=== PATIENT | male | born 1985 | race Caucasian/White ===

== ENCOUNTER 2018-06-01 11:38 | Emergency (ER) | payer SELFPAY ==
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
[2018-06-01] MEDS ORDERED: INSU100V24 SQ (11:54)
[2018-06-01] MEDS ORDERED: INSU100I5 (11:54)
[2018-06-01] MEDS ORDERED: ONDANSETRON 4 MG/2 ML VIAL IVP ONE (12:00)
[2018-06-01] MEDS ORDERED: MORPHINE 4 MG/ML SDV IVP ONE (12:00)
[2018-06-01] MEDS ORDERED: NS(*) 0.9% 1000 ML BAG 1,000 ML IV ONE (12:00)
[2018-06-01 12:20] LABS: PLATELET COUNT, AUTOMATED 254 K/uL (150-450)
== END 2018-06-01 13:10 | disposition home or self-care (01) ==
LOC: ER 11:50
DX: T69.9XXA Effect of reduced temperature, unspecified, initial encounter (principal); M79.672 Pain in left foot; M79.671 Pain in right foot
CPT/HCPCS: 36416; 82948; 85025; 96374; 96375; 99284; J2270; J2405; J7030; 82040; 82247; 82310; 82374; 82435; 82565; 82947; 84075; 84132; 84155; 84295; 84450; 84460; 84520

== ENCOUNTER 2018-06-05 22:45 | Emergency (ER) | payer SELFPAY ==
[~2018-06-05 22:45] MED LIST: INSU100I5; INSU100V24 SQ
[2018-06-05 22:54] VITALS: BP 129/96
--- NOTE | 2018-06-05 23:06 | ER Report ---
History and Physical Time Seen By MD: 23:06 HPI/ROS CHIEF COMPLAINT: requesting a physical exam and TB testing HISTORY OF PRESENT ILLNESS: This is a 32 year old male. He is here [facility] requesting a physical exam for getting into a rehab treatment program in [place]. He denies any current health problems or complaints at this time other than his chronic type 1 diabetes and requesting a prescription for his insulin for use in the program. He does see the [facility] for regular health care. He has no known exposure to TB, but does have a history of drug abuse in the past. He has been sober from alcohol. He does smoke a pack of cigarettes daily, and requesting a prescription for nicotine patches for use during the program. No other current drug use. He is requesting testing for Hepatitis C, and we also talked about getting testing for Hepatitis B and HIV as well. REVIEW OF SYSTEMS: Constitutional: No fever or chills. Eyes: No vision changes. ENT: No sore throat. No congestion. Cardiovascular: No chest pain. No palpitations. Respiratory: No cough. No shortness of breath. Gastrointestinal: No abdominal pain. No nausea or vomiting. No change in bowel movements. Genitourinary: No dysuria. No frequency Musculoskeletal: No musculoskeletal pain. Skin: No rashes. No bruising. Neurological: No numbness. No weakness. No headache. Allergies: Coded Allergies: No Known Drug Allergies (Unverified , 06/05/18) Home Meds Active Scripts Insulin Lispro 100 Un/Ml Vial (HUMALOG 100 U/ML VIAL) 100 Unit/1 Ml Vial, 100 UNIT SQ DIRECTED, #2 VIAL 2 Refills Prov:AZUL LONDONO MD 06/05/18 Insulin Detemir (LEVEMIR) 100 Unit/Ml Injs, 30 UNIT SUBQ BID, #3 PEN 2 Refills Prov:AZUL LONDONO MD 06/05/18 Nicotine (NICOTINE PATCH) 1 Each Patch.td24, 1 EACH TD DAILY, #30 PATCH.24H 3 Refills Prov:AZUL LONDONO MD 06/05/18 Reported Medications Insulin Lispro 100 Un/Ml Vial (HUMALOG 100 U/ML VIAL) 100 Unit/1 Ml Vial, 100 UNIT SQ, VIAL 06/01/18 Insulin Detemir 100 UN/ML PEN (Levemir Flextouch) 100 Unit/1 Ml Insuln.pen 06/01/18 Past Medical/Surgical History 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 No acute distress. Non-toxic in appearance. Eyes: Pupils are equal, round. Reactive to light. No pallor, injection or icterus. Extraocular movements are intact. ENT: Mucous membranes are moist. Normal oral mucosa. Posterior oropharynx is normal. Normal tympanic membranes and canals. Neck: Supple and non tender. No lymphadenopathy. Respiratory: Lungs are clear to auscultation. Cardiovascular: Regular rate and rhythm. No murmurs, gallops or rubs. Normal capillary refill. No edema. Gastrointestinal: Abdomen is soft and non tender. Nondistended. Normal active bowel sounds. No costovertebral angle tenderness with percussion. Neurological: Alert and oriented x3. Cranial nerves II through XII show no acute deficits on my exam. No focal neurologic deficits in the extremities. Skin: Warm and dry. No rashes. Musculoskeletal: Extremities are nontender. Full range of motion. No tenderness in palpation back/spine. DIFFERENTIAL DIAGNOSIS: After history and physical exam, differential diagnosis was considered for unremarkable physical exam for patient who is trying to get into a treatment plan for substance abuse Medical Decision Making Data Points Laboratory Hematology Test 06/05/18 23:46 HIV (1&2) Antibody Negative (NEGATIVE) Chemistry Test 06/05/18 23:46 HIV (1&2) Antibody Negative (NEGATIVE) ED Course/Re-evaluation ED Course Physical exam completed. Prescription for nicotine patches provided. Prescription for insulin provided. TB skin test placed and will be read in [place] at the treatment program he will be attending. Recommended continue follow-up with primary care at the [facility] for continued evaluation of his diabetes. Decision to Disposition Date: Jun 05, 2018 Decision to Disposition Time: 23:41 Depart Departure Latest Vital Signs Vital Signs Date Time Temp Pulse Resp B/P (MAP) Pulse Ox O2 Delivery O2 Flow Rate FiO2 06/05/18 22:54 97.5 111 18 129/96 94 Room Air Impression: Primary Impression: Physical exam Additional Impressions: Substance abuse Nicotine dependence Type 1 diabetes Condition: Condition Unchanged Disposition: HOME OR SELF-CARE New Scripts Insulin Lispro 100 Un/Ml Vial (HUMALOG 100 U/ML VIAL) 100 Unit/1 Ml Vial 100 UNIT SQ DIRECTED, #2 VIAL 2 Refills Prov: AZUL LONDONO MD 06/05/18 Insulin Detemir (LEVEMIR) 100 Unit/Ml Injs 30 UNIT SUBQ BID, #3 PEN 2 Refills Prov: AZUL LONDONO MD 06/05/18 Nicotine (NICOTINE PATCH) 1 Each Patch.td24 1 EACH TD DAILY, #30 PATCH.24H 3 Refills Prov: AZUL LONDONO MD 06/05/18 Patient Instructions: How to Stop Smoking (ED) Additional Instructions: Make sure and call if you do not hear back on the lab tests done today. Have the TB test read in [place] at the treatment program you will be starting. Nicotine patch prescription provided. Insulin prescription provided. Continue to follow-up with [facility] for treatment and monitoring of your diabetes. Problem Qualifiers Additional Impressions: Nicotine dependence Nicotine product type: cigarettes Substance use status: uncomplicated Qualified Codes: F17.210 - Nicotine dependence, cigarettes, uncomplicated Type 1 diabetes Diabetes mellitus complication status: with ophthalmic complications Diabetes mellitus complication detail: with diabetic retinopathy Diabetic retinopathy severity: with unspecified retinopathy severity Diabetes [facility] macular edema: macular edema presence unspecified Laterality: bilateral Qualified Codes: E10.319 - Type 1 diabetes mellitus with unspecified diabetic retinopathy without macular edema AZUL LONDONO MD Jun 05, 2018 23:06
[2018-06-05] MEDS ORDERED: INSU100V24 SQ (23:50)
[2018-06-05] MEDS ORDERED: NICO1PAT86 TD (23:50)
[2018-06-05] MEDS ORDERED: LEVI SUBQ (23:50)
== END 2018-06-06 00:05 | disposition home or self-care (01) ==
LOC: ER 23:05
DX: Z76.0 Encounter for issue of repeat prescription (principal); F19.21 Other psychoactive substance dependence, in remission; E10.319 Type 1 diabetes mellitus with unspecified diabetic retinopathy without macular edema; F17.210 Nicotine dependence, cigarettes, uncomplicated
CPT/HCPCS: 36415; 86580; 86703; 86704; 86706; 86803; 87340; 99282

== ENCOUNTER 2018-06-15 14:35 | Inpatient (IN) | payer SELFPAY ==
[~2018-06-15] VITALS: Ht 182.9 cm; Wt 85.3 kg
[~2018-06-15 14:35] MED LIST changes: -OMEP-125 PO; -SUCR1TAB85 PO; -[UNRECOGNIZED DRUG - OTHER] PO
--- NOTE | 2018-06-15 14:44 | ER Report ---
History and Physical Time Seen By MD: 14:42 Hx. of Stated Complaint: ABDOMINAL PAIN SINCE THIS MORNING. REPORTS WHEN HE GETS DKA HE FEELS THIS WAY HPI/ROS CHIEF COMPLAINT: Possible DKA HISTORY OF PRESENT ILLNESS: This is a 32-year-old male who presents to the emergency department via EMS for possible DKA. Patient began vomiting this morning, he is a type I diabetic. Patient also states he used methamphetamine about 2 days ago, he shot up in his left arm. Patient is very anxious. He also has severe epigastric pain that radiates into the left upper quadrant. No diarrhea. No fevers. No rashes. No headaches or meningismus. REVIEW OF SYSTEMS: Constitutional: No fever, no chills. Eyes: No discharge. ENT: No sore throat. Cardiovascular: No chest pain, no palpitations. Respiratory: No cough, no shortness of breath. Gastrointestinal: As above. Genitourinary: No hematuria. Musculoskeletal: No back pain. Skin: No rashes. Neurological: No headache. Allergies: Coded Allergies: No Known Drug Allergies (Unverified , 06/05/18) Home Meds Active Scripts Insulin Detemir (LEVEMIR) 100 Unit/Ml Injs, 30 UNIT SUBQ BID, #3 PEN 2 Refills Prov:AZUL LONDONO MD 06/05/18 Nicotine (NICOTINE PATCH) 1 Each Patch.td24, 1 EACH TD DAILY, #30 PATCH.24H 3 Refills Prov:AZUL LONDONO MD 06/05/18 Reported Medications Insulin Lispro 100 Un/Ml Vial (HUMALOG 100 U/ML VIAL) 100 Unit/1 Ml Vial, 2-10 UNIT SQ, VIAL 2 units every 50 ml/dl 2 units if Blood Sugar 200-249 4 units if Blood sugar 250-299 6 units if Blood sugar 300-349 8 units if blood sugar 350-399 10 units if blood sugar 400-450 06/01/18 Discontinued Reported Medications Insulin Detemir 100 UN/ML PEN (Levemir Flextouch) 100 Unit/1 Ml Insuln.pen 06/01/18 Discontinued Scripts Insulin Lispro 100 Un/Ml Vial (HUMALOG 100 U/ML VIAL) 100 Unit/1 Ml Vial, 100 UNIT SQ DIRECTED, #2 VIAL 2 Refills Prov:AZUL LONDONO MD 06/05/18 Past Medical/Surgical History The patient has a past medical and surgical history of 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 Reviewed Nurses Notes: Yes Hx Substance Use Disorder: Yes (meth, marijuana current) Hx Alcohol Use: No Constitutional Vital Sign - Last 24 Hours 06/15/18 06/15/18 06/15/18 06/15/18 14:36 14:48 15:00 15:05 Temp 98.0 Pulse 130 123 Resp 20 18 B/P (MAP) 144/102 143/91 (108) 144/90 (108) Pulse Ox 96 O2 Delivery Room Air 06/15/18 06/15/18 16:00 16:05 Pulse 128 Resp 17 B/P (MAP) 149/100 (116) Pulse Ox 92 Physical Exam General Appearance: The patient is alert, has no immediate need for airway protection and no signs of toxicity, very anxious. Eyes: Pupils equal and round no pallor or injection. ENT, Mouth: Mucous membranes are moist. Respiratory: There are no retractions, lungs are clear to auscultation. Cardiovascular: Regular rate and rhythm, no murmurs, clicks or rubs. Gastrointestinal: Abdomen is soft, epigastric with right and left upper quadrant discomfort with palpation, no masses, hypoactive bowel sounds. Neurological: Alert and oriented 4. Moving all extremities. Following all commands. No focal neuro deficits. Skin: Warm and dry, no rashes. Musculoskeletal: Neck is supple non tender. Extremities are nontender, nonswollen and have full range of motion. DIFFERENTIAL DIAGNOSIS: After history and physical exam differential diagnosis was considered for abdominal pain including but not limited to appendicitis, cholecystitis, pancreatitis, diabetic ketoacidosis, gastritis and urinary tract infection. Medical Decision Making Data Points Result Diagram: 06/15/18 1417 06/15/182028 Laboratory Hematology Test 06/15/18 00:00 06/15/18 14:17 06/15/18 14:38 06/15/18 15:34 Acetone, Qualitative Moderate Red Blood Count 5.38 M/uL (4.00-5.60) Mean Corpuscular Volume 93.7 fL (80.0-96.0) Mean Corpuscular Hemoglobin 31.2 pg (26.0-33.0) Mean Corpuscular Hemoglobin Concent 33.3 g/dL (32.0-36.0) Red Cell Distribution Width 14.2 % (11.5-14.5) Mean Platelet Volume 8.7 fL (7.2-11.1) Neutrophils (%) (Auto) 69.7 % (39.4-72.5) Lymphocytes (%) (Auto) 23.0 % (17.6-49.6) Monocytes (%) (Auto) 5.9 % (4.1-12.4) Eosinophils (%) (Auto) 0.6 % (0.4-6.7) Basophils (%) (Auto) 0.8 % (0.3-1.4) Nucleated RBC Relative Count (auto) 0.0 /100WBC Neutrophils # (Auto) 4.7 K/uL (2.0-7.4) Lymphocytes # (Auto) 1.6 K/uL (1.3-3.6) Monocytes # (Auto) 0.4 K/uL (0.3-1.0) Eosinophils # (Auto) 0.0 K/uL (0.0-0.5) Basophils # (Auto) 0.1 K/uL (0.0-0.1) Nucleated RBC Absolute Count (auto) 0.00 K/uL Osmolality 319 mOSM/K (275-295) Total Bilirubin 1.0 mg/dl (0.2-1.3) Aspartate Amino Transf (AST/SGOT) 31 U/L (0-35) Alanine Aminotransferase (ALT/SGPT) 38 U/L (0-56) Alkaline Phosphatase 126 U/L (0-126) Total Protein 7.2 g/dl (6.3-8.2) Albumin 4.5 g/dl (3.5-5.0) Lipase 45 U/L (23-300) Serum Alcohol < 10 mg/dl Urine Color Straw Urine Clarity Clear Urine pH 5.0 pH (4.8-9.5) Urine Specific [place] 1.024 Urine Protein Negative mg/dL (NEGATIVE) Urine Glucose (UA) 500 mg/dL (NEGATIVE) Urine Ketones 80 mg/dL (NEGATIVE) Urine Blood Negative (NEGATIVE) Urine Nitrite Negative (NEGATIVE) Urine Bilirubin Negative (NEGATIVE) Urine Urobilinogen Negative mg/dL (0.2-1.9) Urine Leukocyte Esterase Negative (NEGATIVE) Urine RBC <1 /HPF (0-2/HPF) Urine WBC <1 /HPF (0-5/HPF) Urine Squamous Epithelial Cells None /LPF (</=FEW) Urine Bacteria Negative /HPF (NONE-FEW) Urine Mucus None /HPF (NONE-FEW) Urine Opiates Screen Negative Urine Barbiturates Screen Negative Ur Tricyclic Antidepressants Screen Negative Urine Phencyclidine Screen Negative Urine Amphetamines Screen Positive Urine Benzodiazepines Screen Negative Urine Cocaine Screen Negative Urine Cannabinoids Screen Negative Blood Gas Puncture Site Right radial Blood Gas Patient Temperature 98.0 DEGREES Arterial Blood pH 7.33 (7.35-7.45) Arterial Blood Partial Pressure CO2 < 25 mmHg (32-37) Arterial Blood Partial Pressure O2 68 mmHg (60-80) Arterial Blood HCO3 12 mmol/L (20-26) Arterial Blood Oxygen Saturation 93 % (92-100) Arterial Blood Base Excess -14.0 mmol/L Angelito Test Acceptable Oxygen Liters/Minute 21% Chemistry Test 06/15/18 00:00 06/15/18 14:17 06/15/18 14:38 06/15/18 15:34 Acetone, Qualitative Moderate White Blood Count 6.8 k/uL (4.5-11.0) Red Blood Count 5.38 M/uL (4.00-5.60) Hemoglobin 16.8 g/dL (14.0-18.0) Hematocrit 50.5 % (42.0-52.0) Mean Corpuscular Volume 93.7 fL (80.0-96.0) Mean Corpuscular Hemoglobin 31.2 pg (26.0-33.0) Mean Corpuscular Hemoglobin Concent 33.3 g/dL (32.0-36.0) Red Cell Distribution Width 14.2 % (11.5-14.5) Platelet Count 261 K/uL (150-450) Mean Platelet Volume 8.7 fL (7.2-11.1) Neutrophils (%) (Auto) 69.7 % (39.4-72.5) Lymphocytes (%) (Auto) 23.0 % (17.6-49.6) Monocytes (%) (Auto) 5.9 % (4.1-12.4) Eosinophils (%) (Auto) 0.6 % (0.4-6.7) Basophils (%) (Auto) 0.8 % (0.3-1.4) Nucleated RBC Relative Count (auto) 0.0 /100WBC Neutrophils # (Auto) 4.7 K/uL (2.0-7.4) Lymphocytes # (Auto) 1.6 K/uL (1.3-3.6) Monocytes # (Auto) 0.4 K/uL (0.3-1.0) Eosinophils # (Auto) 0.0 K/uL (0.0-0.5) Basophils # (Auto) 0.1 K/uL (0.0-0.1) Nucleated RBC Absolute Count (auto) 0.00 K/uL Osmolality 319 mOSM/K (275-295) Total Bilirubin 1.0 mg/dl (0.2-1.3) Aspartate Amino Transf (AST/SGOT) 31 U/L (0-35) Alanine Aminotransferase (ALT/SGPT) 38 U/L (0-56) Alkaline Phosphatase 126 U/L (0-126) Total Protein 7.2 g/dl (6.3-8.2) Albumin 4.5 g/dl (3.5-5.0) Lipase 45 U/L (23-300) Serum Alcohol < 10 mg/dl Urine Color Straw Urine Clarity Clear Urine pH 5.0 pH (4.8-9.5) Urine Specific [place] 1.024 Urine Protein Negative mg/dL (NEGATIVE) Urine Glucose (UA) 500 mg/dL (NEGATIVE) Urine Ketones 80 mg/dL (NEGATIVE) Urine Blood Negative (NEGATIVE) Urine Nitrite Negative (NEGATIVE) Urine Bilirubin Negative (NEGATIVE) Urine Urobilinogen Negative mg/dL (0.2-1.9) Urine Leukocyte Esterase Negative (NEGATIVE) Urine RBC <1 /HPF (0-2/HPF) Urine WBC <1 /HPF (0-5/HPF) Urine Squamous Epithelial Cells None /LPF (</=FEW) Urine Bacteria Negative /HPF (NONE-FEW) Urine Mucus None /HPF (NONE-FEW) Urine Opiates Screen Negative Urine Barbiturates Screen Negative Ur Tricyclic Antidepressants Screen Negative Urine Phencyclidine Screen Negative Urine Amphetamines Screen Positive Urine Benzodiazepines Screen Negative Urine Cocaine Screen Negative Urine Cannabinoids Screen Negative Blood Gas Puncture Site Right radial Blood Gas Patient Temperature 98.0 DEGREES Arterial Blood pH 7.33 (7.35-7.45) Arterial Blood Partial Pressure CO2 < 25 mmHg (32-37) Arterial Blood Partial Pressure O2 68 mmHg (60-80) Arterial Blood HCO3 12 mmol/L (20-26) Arterial Blood Oxygen Saturation 93 % (92-100) Arterial Blood Base Excess -14.0 mmol/L Angelito Test Acceptable Oxygen Liters/Minute 21% Toxicology Test 06/15/18 00:00 06/15/18 14:17 06/15/18 14:38 Acetone, Qualitative Moderate Serum Alcohol < 10 mg/dl Urine Opiates Screen Negative Urine Barbiturates Screen Negative Ur Tricyclic Antidepressants Screen Negative Urine Phencyclidine Screen Negative Urine Amphetamines Screen Positive Urine Benzodiazepines Screen Negative Urine Cocaine Screen Negative Urine Cannabinoids Screen Negative Urinalysis Test 06/15/18 14:38 Urine Color Straw Urine Clarity Clear Urine pH 5.0 pH (4.8-9.5) Urine Specific [place] 1.024 Urine Protein Negative mg/dL (NEGATIVE) Urine Glucose (UA) 500 mg/dL (NEGATIVE) Urine Ketones 80 mg/dL (NEGATIVE) Urine Blood Negative (NEGATIVE) Urine Nitrite Negative (NEGATIVE) Urine Bilirubin Negative (NEGATIVE) Urine Urobilinogen Negative mg/dL (0.2-1.9) Urine Leukocyte Esterase Negative (NEGATIVE) Urine RBC <1 /HPF (0-2/HPF) Urine WBC <1 /HPF (0-5/HPF) Urine Squamous Epithelial Cells None /LPF (</=FEW) Urine Bacteria Negative /HPF (NONE-FEW) Urine Mucus None /HPF (NONE-FEW) EKG/Imaging EKG Interpretation 12 lead EKG: Time of EKG 1505. Rhythm: Sinus tachycardia, ventricular rate 121 BPM. [place]: normal QRS: normal ST segments: No ST depression or elevation identified. Peak T waves in V3, V4, otherwise no other abnormalities identified. Imaging Location: [facility] - [place] Patient: Charles Cortez : 1985 Visit/Account:[id number] Date of Sevice: 06/15/2018 CHEST PA LAT INDICATION: Epigastric pain, DKA, tachy, meth use COMPARISON: None available FINDINGS: Heart size within normal limits. There is no focal infiltrate or lobar consolidation. There is no pneumothorax or pleural effusion. IMPRESSION: 1. No acute cardiopulmonary process. Report Dictated By: Dave Ortega at 06/15/2018 4:42 PM Report E-Signed By: Dave Ortega at 06/15/2018 4:43 PM WSN:[id number] Location: [facility] - [place] Patient: Charles Cortez : 1985 Visit/Account:[id number] Date of Sevice: 06/15/2018 CT ABDOMEN PELVIS W/ CON COMPARISON: None. HISTORY: abd pain, meth use, DKA. TECHNIQUE: Axial CT abdomen and pelvis with intravenous contrast. Coronal and sagittal reformats. One of the following dose optimization techniques was utilized in the performance of this exam: automated exposure control; adjustment of the mA and/or kV according to patient size; or use of iterative reconstructio n technique. Specific details can be referenced in the facility's radiology CT exam operational policy. CONTRAST: 85 mL of IV Isovue-370. FINDINGS: LUNG BASES: Severe diffuse wall thickening of the distal esophagus, with prominent, subcentimeter paraesophageal lymph nodes which are more numerous than typical. The subdural wall thickening is continuous over a length of at least 10 cm, incompletely imaged. This is most consistent with esophagitis given the patient's age. Distal esophagus neoplasm would be unlikely in this age group. LIVER: Negative. BILIARY: Negative. SPLEEN: Negative. PANCREAS: Negative. ADRENALS: Negative. KIDNEYS: Negative. GI/MESENTERY: Distal esophagus wall thickening as above. This extends to the GE junction but does not appear to involve the gastric fundus. The rest of the stomach is under distended but unremarkable. There is no bowel wall thickening in the abdomen or pelvis and there is no evidence for obstruction. No localized inflammatory fat stranding, free air, or ascites. Appendix is not identified. Small fat-containing periumbilical hernia just superior to the umbilicus with mild internal fat stranding which is nonspecific. This does not contain bowel. VASCULAR: Negative. LYMPH NODES: Negative. BLADDER: Negative. PELVIC ORGANS: Negative. BONES: Negative. OTHER: Negative. IMPRESSION: 1. Marked, long segment wall thickening of the distal esophagus, most consistent with acute esophagitis given the provided history of pain and the patient's age.Numerous small paraesophageal lymph nodes are probably reactive. 2. No other acute bowel pathology in the abdomen or pelvis. 3. Small fat-containing periumbilical hernia just superior to the umbilicus with mild internal fat stranding, nonspecific. Report Dictated By: Prashanth Feliz at 06/15/2018 4:55 PM Report E-Signed By: Prashanth Feliz at 06/15/2018 5:00 PM WSN:[id number] ED Course/Re-evaluation Clinical Indication for ER IV: Hydration, IV Access ED Course The patient was admitted to room. A history of physical were obtained. Differential diagnoses were considered. An IV was started. A CBC, CMP were obtained. EKG showing sinus tachycardia. A UA was collected. Patient's initial glucose was 633, a normal saline bolus was initiated, CBC unremarkable, initial chemistry showing sodium 131, CO2 16, patient was hyperventilating, BUN 28, ABG showing pH of 7.33, PCO2 25, bicarbonate 12, positive for methamphetamine, negative alcohol, initial serum osmole elevated at 319. A 2nd normal saline bolus was given. Once the laboratory studies are resulted the patient was given an 8 units IV bolus of regular insulin, with a follow-up of 8 units per hour insulin drip. Repeat blood sugar 532. As the patient had severe vomiting and complaining of severe abdominal pain he CT of the abdomen and pelvis was obtained, showing Marked, long segment wall thickening of the distal esophagus, most consistent with acute esophagitis given the provided history of pain and the patient's age. Numerous small paraesophageal lymph nodes are probably reactive. No other acute bowel pathology in the abdomen or pelvis. Patient was given 4 mg IV Zofran which did not provide relief of his nausea and vomiting, suspect given follow-up dose of 12.5 mg IV Phenergan which helped however he continued to have intermittent episodes of vomiting, he was given a subsequent d ose of 12.5 mg IV Phenergan with resolution of his nausea and vomiting. I did review the case with Dr. Mansi Villanueva as noted below, she accepted the patient and the hospitalist services, the patient was transferred to the intensive care unit. The patient was aware and agreeable with the admission. 06/15/2018 3:50:35 pm 8 unit bolus of IV insulin, insulin drip at 8 units an hour. 06/15/2018 4:14:06 pm I did speak with Dr. Mansi Villanueva, the hospitalist software application tester, she is tentatively accepted the patient in the hospitalist services, I will update her with the CT abdomen results. 06/15/2018 5:25:11 pm I did follow up with Dr. Mansi Villanueva the hospitalist on-call, she's accepted the patient in the ICU. Patient will be admitted for DKA and methamphetamine use. Decision to Disposition Date: Jun 15, 2018 Decision to Disposition Time: 17:20 Depart Departure Latest Vital Signs Vital Signs Date Time Temp Pulse Resp B/P (MAP) Pulse Ox O2 Delivery O2 Flow Rate FiO2 06/15/18 16:05 128 17 92 06/15/18 16:00 149/100 (116) 06/15/18 14:36 98.0 Room Air Impression: Primary Impression: DKA (diabetic ketoacidoses) Additional Impressions: Methamphetamine use Type 1 diabetes Condition: Improved Disposition: Admitted from ER Problem Qualifiers Primary Impression: DKA (diabetic ketoacidoses) Diabetes mellitus type: type 1 Diabetes mellitus complication detail: without coma Qualified Codes: E10.10 - Type 1 diabetes mellitus with ketoacidosis without coma Additional Impressions: Type 1 diabetes Diabetes mellitus complication status: with hyperglycemia Qualified Codes: E10.65 - Type 1 diabetes mellitus with hyperglycemia KAYDEN MUNIZ LABORER [facility] Jun 15, 2018 14:44
[2018-06-15] MEDS ORDERED: NS(*) 0.9% 1000 ML BAG 1,000 ML IV ONE ×2 (14:54→15:10)
[2018-06-15] MEDS ORDERED: ONDANSETRON 4 MG ODT TABDP SL ONE (14:55)
[2018-06-15] MEDS ORDERED: ONDANSETRON 4 MG/2 ML VIAL IVP ONE (15:05)
[2018-06-15 15:06] LABS: PLATELET COUNT, AUTOMATED 261 K/uL (150-450)
[2018-06-15] MEDS ORDERED: PROMETHAZINE 25 MG/ML 1 ML AMP IVP ONE ×2 (15:20→15:55)
[2018-06-15] MEDS ORDERED: IOPAMIDOL 76% 100 ML INFUS BTL 100 ML ONE (15:28)
[2018-06-15] MEDS ORDERED: INS HUM REG* 100 U/ML(ER ONLY) 100 UNIT in NS(*) 0.9% 100 ML BAG 99 ML IV SCH (15:40)
[2018-06-15] MEDS ORDERED: INSU HUM REG 100 U/ML(ER ONLY) 10 ML VIAL IV ONE (15:40)
[2018-06-15] MEDS ORDERED: EMS NS 0.9%(*) 1000 ML BAG 1,000 ML IV ONE (15:50)
[2018-06-15] MEDS ORDERED: KETOROLAC 30 MG/ML VIAL IVP ONE (15:50)
--- NOTE | 2018-06-15 15:55 | EKG ---
FACILITY: [facility] PATIENT NAME: MARTÍNEZ GONZALEZ : [id number] MR: [id number] V: [id number] EXAM DATE: ORDERING PHYSICIAN: KAYDEN MUNIZ TECHNOLOGIST: Test Reason : Blood Pressure : / mmHG Vent. Rate : 121 BPM Atrial Rate : 121 BPM P-R Int : 146 ms QRS Dur : 074 ms QT Int : 324 ms P-R-T Axes : 070 071 050 degrees QTc Int : 460 ms Sinus tachycardia Otherwise normal ECG No previous ECGs available Confirmed by NI WALKER ([id number]) on 06/15/2018 8:03:47 PM Referred By: Confirmed By:NI WALKER
--- NOTE | 2018-06-15 16:47 | RADIOLOGY IMAGING REPORT ---
FACILITY: [facility] PATIENT NAME: Charles Cortez : 1985 MR: [id number] V: [id number] EXAM DATE: ORDERING PHYSICIAN: KAYDEN MUNIZ TECHNOLOGIST: [place] [facility] [place] Patient: Charles Cortez : 1985 Visit/Account:[id number] Date of Sevice: 06/15/2018 CHEST PA LAT INDICATION: Epigastric pain, DKA, tachy, meth use COMPARISON: None available FINDINGS: Heart size within normal limits. There is no focal infiltrate or lobar consolidation. There is no pneumothorax or pleural effusion. IMPRESSION: 1. No acute cardiopulmonary process. Report Dictated By: Dave Ortega at 06/15/2018 4:42 PM Report E-Signed By: Dave Ortega at 06/15/2018 4:43 PM WSN:[id number]
--- NOTE | 2018-06-15 17:04 | RADIOLOGY IMAGING REPORT ---
FACILITY: [facility] PATIENT NAME: Charles Cortez : 1985 MR: [id number] V: [id number] EXAM DATE: ORDERING PHYSICIAN: KAYDEN MUNIZ TECHNOLOGIST: [place] [facility] [place] Patient: Charles Cortez : 1985 Visit/Account:[id number] Date of Sevice: 06/15/2018 CT ABDOMEN PELVIS W/ CON COMPARISON: None. HISTORY: abd pain, meth use, DKA. TECHNIQUE: Axial CT abdomen and pelvis with intravenous contrast. Coronal and sagittal reformats. O ne of the following dose optimization techniques was utilized in the performance of this exam: autom ated exposure control; adjustment of the mA and/or kV according to patient size; or use of iterative reconstruction technique. Specific details can be referenced in the facility's radiology CT exam ope rational policy. CONTRAST: 85 mL of IV Isovue-370. FINDINGS: LUNG BASES: Severe diffuse wall thickening of the distal esophagus, with prominent, subcentimeter pa raesophageal lymph nodes which are more numerous than typical. The subdural wall thickening is contin uous over a length of at least 10 cm, incompletely imaged. This is most consistent with esophagitis g iven the patient's age. Distal esophagus neoplasm would be unlikely in this age group. LIVER: Negative. BILIARY: Negative. SPLEEN: Negative. PANCREAS: Negative. ADRENALS: Negative. KIDNEYS: Negative. GI/MESENTERY: Distal esophagus wall thickening as above. This extends to the GE junction but does no t appear to involve the gastric fundus. The rest of the stomach is under distended but unremarkable. There is no bowel wall thickening in the abdomen or pelvis and there is no evidence for obstruction. No localized inflammatory fat stranding, free air, or ascites. Appendix is not identified. Small fat- containing periumbilical hernia just superior to the umbilicus with mild internal fat stranding which is nonspecific. This does not contain bowel. VASCULAR: Negative. LYMPH NODES: Negative. BLADDER: Negative. PELVIC ORGANS: Negative. BONES: Negative. OTHER: Negative. IMPRESSION: 1. Marked, long segment wall thickening of the distal esophagus, most consistent with acute esophagi tis given the provided history of pain and the patient's age.Numerous small paraesophageal lymph node s are probably reactive. 2. No other acute bowel pathology in the abdomen or pelvis. 3. Small fat-containing periumbilical hernia just superior to the umbilicus with mild internal fat s tranding, nonspecific. Report Dictated By: Prashanth Feliz at 06/15/2018 4:55 PM Report E-Signed By: Prashanth Feliz at 06/15/2018 5:00 PM WSN:[id number]
[2018-06-15 17:46] VITALS: BP 136/86
[2018-06-15] MEDS: NS(*) 0.9% 1000 ML BAG 1,000 ML IV PRN ×2 (18:39→18:40)
[2018-06-15] MEDS: GI COCKTAIL 60 ML BTL PO PRN (18:46)
[2018-06-15] MEDS ORDERED: KCL/D1/2NS 20 MEQ 1000 ML 1,000 ML IV SCH (18:55)
[2018-06-15 19:00] VITALS: BP 111/74
--- NOTE | 2018-06-15 19:48 | History & Physical ---
History of Present Illness Chief Complaint The patient is a 32 year old male with history of type I DM for 20 years with multiple admissions for DKA and polysubstance abuse who presents with abdominal pain, nausea and vomiting starting this morning. History of Present Illness The patient was diagnosed with type I DM in 1998. He has a history of polysubstance abuse. He and his moved to [place] to get a fresh start. They were both clean for 3 months and then 3 days ago started using methamphetamine again. The patient says he used twice 3 days ago but has not used any drugs since. The patient has had retinopathy and neuropathy related to his DM. He has been on gabapentin in the past which he states didn't help much. Earlier this month he was seen at [facility] ER for frostbite to his feet due to wearing flip flops in the snow. He states he has had much worse burning in his feet since this injury. The patient has been going to the [facility] for care. He and his were planning to both go in to inpatient rehabilitation in [place]. The patient also has a history of ID due to cocaine use at age 25. He had a cardiac catheterization at that time and was told his coronary arteries were "clear". This morning he work up with severe epigastric pain and started having nausea and vomiting. He vomited multiple times and his symptoms worsened so he presented to [facility] ER for evaluation. He denies fever or chills. He has not had diarrhea. He reportedly did have some hematemesis in the ER. He states his DKA usually starts with these symptoms but today his symptoms have been much more severe than usual. The patient notes that he has had multiple episodes of DKA in the past. He admits that he has not been taking care of himself well recently. History Problems: (1) Type 1 diabetes Status: Chronic Comment: Diagnosed July 1998. (2) Substance abuse Status: Chronic (3) Nicotine dependence Status: Acute (4) History of eye surgery Comment: Laser surgery to left eye for DM retinopathy. (5) Diabetic neuropathy associated with type 1 diabetes mellitus (6) Diabetic retinopathy Comment: R eye blind. (7) Normal coronary arteries (8) Myocardial infarction Comment: Due to cocaine use. (9) Hx of tonsillectomy (10) Hx of appendectomy Home Meds Active Scripts Insulin Detemir (LEVEMIR) 100 Unit/Ml Injs, 30 UNIT SUBQ BID, #3 PEN 2 Refills Prov:AZUL LONDONO MD 06/05/18 Nicotine (NICOTINE PATCH) 1 Each Patch.td24, 1 EACH TD DAILY, #30 PATCH.24H 3 Refills Prov:AZUL LONDONO MD 06/05/18 Reported Medications Insulin Lispro 100 Un/Ml Vial (HUMALOG 100 U/ML VIAL) 100 Unit/1 Ml Vial, 2-10 UNIT SQ, VIAL 2 units every 50 ml/dl 2 units if Blood Sugar 200-249 4 units if Blood sugar 250-299 6 units if Blood sugar 300-349 8 units if blood sugar 350-399 10 units if blood sugar 400-450 06/01/18 Discontinued Reported Medications Insulin Detemir 100 UN/ML PEN (Levemir Flextouch) 100 Unit/1 Ml Insuln.pen 06/01/18 Discontinued Scripts Insulin Lispro 100 Un/Ml Vial (HUMALOG 100 U/ML VIAL) 100 Unit/1 Ml Vial, 100 UNIT SQ DIRECTED, #2 VIAL 2 Refills Prov:AZUL LONDONO MD 06/05/18 Allergies: Coded Allergies: No Known Drug Allergies (Unverified , 06/05/18) Patient History: FH: cancer (Mother with head and neck cancer.) MOTHER FH: leukemia MOTHER FH: type 1 diabetes BROTHER OR SISTER Hx Smoking: Yes (1 PPD) Smoking Status: Current: Every Day Smoker Hx Alcohol Use: Yes Hx Substance Use Disorder: Yes (meth, marijuana current) Social Drug Use: Currently Social Drugs: Marijuana, Amphetamines History of IV Drug Use: Yes Review of Systems Constitutional: No Fever, No Night Sweats Neurological: Weakness Eyes: Loss of Vision (Due to diabetic retinopathy.) Cardiovascular: No Chest Pain Respiratory: No Shortness of Breath, No Cough Gastrointestinal: Nausea, Vomiting; No Diarrhea; Other (Epigastric pain.) Genitourinary: Other (Has to use a lot of pressure to empty his bladder. Hx of [place] in past with DKAs.) Psychiatric: Other (Polysubstance abuse.) Exam Vital Signs Vital Signs Date Time Temp Pulse Resp B/P (MAP) Pulse Ox O2 Delivery O2 Flow Rate FiO2 06/15/18 17:49 124 06/15/18 17:46 98.3 21 136/86 (103) 91 Nasal Cannula 1.0 General Appearance: No Acute Distress, Other (Sleepy but awakens.) Neuro: No Gross deficits Eyes: PERRLA Neck: No Masses Cardiovascular: Other (Tachy, regular.) Respiratory: Clear to Auscultation (Anteriorly.) GI: Other (Abdomen soft but tender in epigastric area. BS+.) Extremities: Warm, Perfused, Other (Healed wounds scattered over feet and lower legs.) Integumentary: Other (See above.) Psych: Appropriate Mood & Affect Medical Decision Making Data Points Result Diagram: 06/15/18 1417 06/15/18 1417 Item Value Date Time Blood Gas Puncture Site Right radial 06/15/18 1534 Blood Gas Patient Temperature 98.0 DEGREES 06/15/18 1534 Arterial Blood pH 7.33 L 06/15/18 1534 Arterial Blood Partial Pressure CO2 < 25 mmHg L 06/15/18 1534 Arterial Blood Partial Pressure O2 68 mmHg 06/15/18 1534 Arterial Blood HCO3 12 mmol/L *L 06/15/18 1534 Arterial Blood Oxygen Saturation 93 % 06/15/18 1534 Arterial Blood Base Excess -14.0 mmol/L 06/15/18 1534 Angelito Test Acceptable 06/15/18 1534 Oxygen Liters/Minute 21% 06/15/18 1534 Urine Opiates Screen Negative 06/15/18 1438 Urine Barbiturates Screen Negative 06/15/18 1438 Ur Tricyclic Antidepressants Screen Negative 06/15/18 1438 Urine Phencyclidine Screen Negative 06/15/18 1438 Urine Amphetamines Screen Positive 06/15/18 1438 Urine Benzodiazepines Screen Negative 06/15/18 1438 Urine Cocaine Screen Negative 06/15/18 1438 Urine Cannabinoids Screen Negative 06/15/18 1438 Acetone, Qualitative Moderate 06/15/18 0000 Serum Alcohol < 10 mg/dl 06/15/18 1417 EKG / Imaging EKG [place]ation [place] [facility] [place] NAME: CHARLES GONZALEZ : [id number] MR: [id number] V: [id number] EXAM DATE: ORDERING PHYSICIAN: KAYDEN MUNIZ TECHNOLOGIST: Test Reason : Blood Pressure : / mmHG Vent. Rate : 121 BPM Atrial Rate : 121 BPM P-R Int : 146 ms QRS Dur : 074 ms QT Int : 324 ms P-R-T Axes : 070 071 050 degrees QTc Int : 460 ms Sinus tachycardia Otherwise normal ECG No previous ECGs available Referred By: Confirmed By: [id number] T: [place] [facility] [place] NAME: [place] Gonzalez : 1985 MR: [id number] V: [id number] EXAM DATE: ORDERING PHYSICIAN: KAYDEN MUNIZ TECHNOLOGIST: Location: [facility] Patient: Charles Gonzalez : 1985 Visit/Account:[id number] Date of Sevice: 06/15/2018 CT ABDOMEN PELVIS W/ CON COMPARISON: None. HISTORY: abd pain, meth use, DKA. TECHNIQUE: Axial CT abdomen and pelvis with intravenous contrast. Coronal and sagittal reformats. One of the following dose optimization techniques was utilized in the performance of this exam: automated exposure control; adjustment of the mA and/or kV according to patient size; or use of iterative reconstruction technique. Specific details can be referenced in the facility's radiology CT exam operational policy. CONTRAST: 85 mL of IV Isovue-370. FINDINGS: LUNG BASES: Severe diffuse wall thickening of the distal esophagus, with prominent, subcentimeter paraesophageal lymph nodes which are more numerous than typical. The subdural wall thickening is continuous over a length of at least 10 cm, incompletely imaged. This is most consistent with esophagitis given the patient's age. Distal esophagus neoplasm would be unlikely in this age group. LIVER: Negative. BILIARY: Negative. SPLEEN: Negative. PANCREAS: Negative. ADRENALS: Negative. KIDNEYS: Negative. GI/MESENTERY: Distal esophagus wall thickening as above. This extends to the GE junction but does not appear to involve the gastric fundus. The rest of the stomach is under distended but unremarkable. There is no bowel wall thickening in the abdomen or pelvis and there is no evidence for obstruction. No localized inflammatory fat stranding, free air, or ascites. Appendix is not identified. Small fat-containing periumbilical hernia just superior to the umbilicus with mild internal fat stranding which is nonspecific. This does not contain bowel. VASCULAR: Negative. LYMPH NODES: Negative. BLADDER: Negative. PELVIC ORGANS: Negative. BONES: Negative. OTHER: Negative. IMPRESSION: 1. Marked, long segment wall thickening of the distal esophagus, most consistent with acute esophagitis given the provided history of pain and the patient's age.Numerous small paraesophageal lymph nodes are probably reactive. 2. No other acute bowel pathology in the abdomen or pelvis. 3. Small fat-containing periumbilical hernia just superior to the umbilicus with mild internal fat stranding, nonspecific. Report Dictated By: Prashanth Feliz at 06/15/2018 4:55 PM Report E-Signed By: Prashanth Feliz at 06/15/2018 5:00 PM WSN:[id number] [place] [facility] [place] NAME: Charles Gonzalez : 1985 MR: [id number] V: [id number] EXAM DATE: ORDERING PHYSICIAN: KAYDEN MUNIZ TECHNOLOGIST: Location: [facility] Patient: Charles Gonzalez : 1985 Visit/Account:[id number] Date of Sevice: 06/15/2018 CHEST PA LAT INDICATION: Epigastric pain, DKA, tachy, meth use COMPARISON: None available FINDINGS: Heart size within normal limits. There is no focal infiltrate or lobar consolidation. There is no pneumothorax or pleural effusion. IMPRESSION: 1. No acute cardiopulmonary process. Report Dictated By: Dave Ortega at 06/15/2018 4:42 PM Report E-Signed By: Dave Ortega at 06/15/2018 4:43 PM WSN:[id number] Pre-Admit Course Medical Record Review: Yes (Previous ER visits.) Assessment and Plan Problems: (1) DKA (diabetic ketoacidoses) Status: Acute Assessment & Plan: Will admit to ICU and continue insulin gtt. Vigorous fluid resuscitation. Monitor BMP q 6 hours. Hourly glucose checks. NPO with ice chips only. Adjust fluid type and rate based on glucoses and BMP results. (2) Type 1 diabetes Status: Chronic Assessment & Plan: Diabetic for 20 years with multiple hospitalizations for DKA. Uses Levemir 30u bid plus Humalog per sliding scale. Followed at the [facility]. Has retinopathy and neuropathy. Blind in right eye. Has had laser surgery to L eye. (3) Esophagitis Status: Acute Assessment & Plan: Will place on pantoprazole 40mg IV bid, sucralfate slurry qid and GI cocktail prn. NPO for now with ice chips only. (4) Substance abuse Status: Chronic Assessment & Plan: Recent methamphetamine use with positive toxicology confirming this. None for 2-3 days. Had been clean for 3 months prior. Plans to go to inpatient rehab in [facility]. Time Spent on Plan of Care: < 30 min Copies to: ; [facility] Venous Thromboembolism Antithrombotics Is Pt On Any Antithrombotics?: Yes Exam Sepsis Risk: No Definite Risk Problem Qualifiers (1) DKA (diabetic ketoacidoses): Diabetes mellitus type: type 1 Diabetes mellitus complication detail: without coma Qualified Codes: E10.10 - Type 1 diabetes mellitus with ketoacidosis without coma (2) Type 1 diabetes: Diabetes mellitus complication status: with hyperglycemia Qualified Codes: E10.65 - Type 1 diabetes mellitus with hyperglycemia NI JAQUEZ MD Jun 15, 2018 19:48
[2018-06-15 20:00] VITALS: BP 112/59
[2018-06-15] MEDS: SUCRALFATE 1 GM/10 ML ORAL.SUSP PO SCH (20:32)
[2018-06-15] MEDS: PANTOPRAZOLE SOD 40 MG IV VIAL IVP SCH (20:32)
[2018-06-15 21:00] VITALS: BP 109/66
[2018-06-15] MEDS: KCL/D1/2NS 20 MEQ 1000 ML 1,000 ML IV SCH (21:26)
[2018-06-15 22:00] VITALS: BP 108/72
[2018-06-15 23:00] VITALS: BP 125/79
[2018-06-15] MEDS: PROMETHAZINE 25 MG/ML 1 ML AMP IVP PRN (23:18)
[2018-06-16] VITALS (13 sets, daily range): BP systolic 97–144; BP diastolic 56–95
[2018-06-16] MEDS: KCL/D1/2NS 20 MEQ 1000 ML 1,000 ML IV SCH (03:19)
[2018-06-16] MEDS ORDERED: KCL/D1/2NS 20 MEQ 1000 ML 1,000 ML IV SCH (03:21)
[2018-06-16] MEDS: SUCRALFATE 1 GM/10 ML ORAL.SUSP PO SCH ×2 (06:04→11:58)
[2018-06-16] MEDS: GI COCKTAIL 60 ML BTL PO PRN ×2 (06:04→12:40)
[2018-06-16] MEDS ORDERED: NS(*) 0.9% 1000 ML BAG 1,000 ML IV PRN (07:55)
--- NOTE | 2018-06-16 08:04 | Hospitalist Progress Note ---
Subjective Progress Notes Subjective "I feel much better than yesterday". Still some mild nausea. No recent emesis. Acidosis improved. Physical Exam Vital Signs Date Time Temp Pulse Resp B/P (MAP) Pulse Ox O2 Delivery O2 Flow Rate FiO2 06/16/18 07:18 94 Nasal Cannula 1.0 06/16/18 07:00 97.7 95 18 99/62 (74) Intake and Output 06/16/18 07:00 Intake Total 3609.8 ml Output Total 1325 ml Balance 2284.8 ml Intake Oral 40 ml IV Total 3569.8 ml Output Urine Total 1325 ml General Appearance: Alert, Awake Cardiovascular: Regular Rate and Rhythm Respiratory: Clear to Auscultation GI: Soft and Non-Tender (BS present) Result Diagram: 06/15/18 1417 06/16/18 0512 Item Value Date Time Whole Blood Glucose 224 mg/DL H 06/16/18 0704 Whole Blood Glucose 200 mg/DL H 06/16/18 0603 Whole Blood Glucose 181 mg/DL H 06/16/18 0512 Whole Blood Glucose 152 mg/DL H 06/16/18 0349 Whole Blood Glucose 128 mg/DL H 06/16/18 0235 Whole Blood Glucose 120 mg/DL H 06/16/18 0136 Whole Blood Glucose 148 mg/DL H 06/16/18 0035 Assessment and Plan Problems: (1) DKA (diabetic ketoacidoses) Status: Acute Assessment & Plan: Improved. Acidosis essentially resolved. Will now start back on PO intake. Will stop the IV insulin and resume his Levemir SQ at half-dose (15 units BID) and use SSI as needed. Will continue IV saline. Watch glucoses/labs. (2) Type 1 diabetes Status: Chronic Assessment & Plan: Diabetic for 20 years with multiple hospitalizations for DKA. Uses Levemir 30u BID plus Humalog per sliding scale. Followed at the [facility]. He has retinopathy and neuropathy. Blind in right eye. Has had laser surgery to left eye. (3) Esophagitis Status: Acute Assessment & Plan: Symptomatically improved. Will start on mechanical soft/GI soft diet. Will continue on pantoprazole 40mg IV BID, sucralfate slurry QID and GI cocktail prn. (4) Substance abuse Status: Chronic Assessment & Plan: Recent methamphetamine use with positive toxicology confirmation. None now for 2-3 days. He had been clean for 3 months prior. Plans to go to inpatient rehab in [place] soon. Exam Sepsis Risk: No Definite Risk Problem Qualifiers (1) DKA (diabetic ketoacidoses): Diabetes mellitus type: type 1 Diabetes mellitus complication detail: without coma Qualified Codes: E10.10 - Type 1 diabetes mellitus with ketoacidosis without coma (2) Type 1 diabetes: Diabetes mellitus complication status: with hyperglycemia Qualified Codes: E10.65 - Type 1 diabetes mellitus with hyperglycemia REY JAQUEZ MD Jun 16, 2018 08:04
[2018-06-16] MEDS: PANTOPRAZOLE SOD 40 MG IV VIAL IVP SCH (08:26)
[2018-06-16] MEDS: INSULIN HUM LISPRO 100 UN/ML 3 ML VIAL SUBQ PRN ×2 (08:27→11:59)
[2018-06-16] MEDS: PROMETHAZINE 25 MG/ML 1 ML AMP IVP PRN ×2 (08:35→12:37)
[2018-06-16] MEDS ORDERED: INSULIN DETEMIR 100 U/ML 3 ML PEN SUBQ SCH (09:00)
--- NOTE | 2018-06-16 12:43 | Medical Nutrition Therapy ---
Nutrition Anthropometrics Height (Inches): 72.00 Height (Calculated Centimeters: 182.677045 Weight (Pounds): 188 Weight (Calculated Kilograms): 85.275 Stephen Nutrition Score: Probably Inadequate Stephen Nutrition Risk Score: 19 Dietary Referral Nutrition Risk Factors: Nutrition Risk Comment: Nutrition/Food History Pt states counts CHO and adjusts insulin Nutritional Diagnosis Nutritional Risk Acuity 2: Blood Glucose > 300mg/dl, DKA Nutritional Risk Acuity 3: Fair Appetite, Substance abuse (meth + marijuana) Past Medical History: T1DM, substance abuse Nutritional Acuity: 2-Moderate Nutrition Diagnosis: Inconsistent Carb. Intake Nutrition Etiology: Physiological Causes Nutrition Problem/Etiology/Sym: AEB dx DKA with admitting BG 633 Energy Requirement: 2400 (M- StJ) Protein Requirement: 85 (1gm/kg) Fluid Requirement: 2550 (30ml/kg) Diet Type: Soft Mechanical (GI soft) Nutrition Intervention: Incr diet as tolerated Nutritional Education Nutrition Education Topic: Diabetic Nutrition Learning Readiness: Not Interested Response to Teaching: Patient Refused Teaching Recipient: Patient Nutrition Counseling: Pt states he counts CHO and adjusts insulin based on CHO. Question compliance r/t hx of substance abuse. Pt not ready and not interested in diabetic education at this time. Provided contact info if pt desires education at a future time. Nutrition Monitoring & Eval Nutrition Goals: Eat 75-100% Meal RD Patient Assessment Time: [address] Assessment Type: RD Assessment Patient Nutrition Acuity: 2-Moderate Follow Up Date: Jun 20, 2018 Nutritional Comment: 06/16 Pt admitted for DKA with hx of substance abuse. Pt on [facility] soft/GI soft diet. Pt reported nausea but ate 100% of first meal in facility. Admitting BG 633 but has declined to 150-250's. Alb 4.5. Will cont to monitor and encourage intake. YASH GRANADOS Jun 16, 2018 12:43
[2018-06-16] MEDS ORDERED: INSU100V24 SQ (14:22)
[2018-06-16] MEDS ORDERED: LEVI SUBQ (14:22)
[2018-06-16] MEDS ORDERED: SUCR1TAB85 PO (14:22)
[2018-06-16] MEDS ORDERED: OMEP-125 PO (14:22)
[2018-06-16] MEDS ORDERED: [UNRECOGNIZED DRUG - OTHER] PO (14:26)
--- NOTE | 2018-06-16 14:39 | Hospitalist Depart ---
Discharge Summary Reason for Hosp/Final Diag: (1) DKA (diabetic ketoacidoses) Status: Acute Hospital Course & Plan: He was initially admitted to the ICU and placed on IV insulin with glucose monitoring every one hour. His glucoses improved very quickly and his acidosis had essentially resolved. We did start back on oral intake. We were able to stop the IV insulin and resume his Levemir SQ at half- dose (15 units BID) and use SSI as needed. He was transferred to the floor and seemed to be doing well, albeit with lingering nausea and esophageal pain due to his esophagitis. He decided he wished to leave against medical advice as he had some marital problems he needed to address with his . I advised him it would be best to stay [facility] to make sure he was going to be able to eat and drink appropriately without recurrent nausea/vomiting. He could easily have recurrent diabetic ketoacidosis, which could lead to further problems even including . He did still want to leave. He was advised he can return at any time if he wishes. (2) Type 1 diabetes Status: Chronic Hospital Course & Plan: Diabetic for 20 years with multiple hospitalizations for DKA. Uses Levemir 30units BID plus Humalog per sliding scale with meals. He is followed at the [facility]. He has retinopathy and neuropathy. Blind in right eye. Has had laser surgery to left eye. (3) Esophagitis Status: Acute Hospital Course & Plan: Symptomatically improved. We started on mechanical so ft/GI soft diet. He seemed to tolerate fairly well. Will continue on omeprazole 20mg PO BID, sucralfate slurry PO QID and GI cocktail prn. (4) Substance abuse Status: Chronic Hospital Course & Plan: Recent methamphetamine use with positive toxicology confirmation. None now for 2-3 days. He had been clean for 3 months prior. Plans to go to inpatient rehab center in [facility]. He was seen by the substance abuse counselor during his stay. He will return to the [facility] ER if any problems. Departure Weight (Pounds): 188 Result Diagram: 06/15/18 1417 06/16/18 0512 Item Value Date Time White Blood Count 6.8 k/uL 06/15/18 141 Hemoglobin 16.8 g/dL 06/15/18 141 Hematocrit 50.5 % 06/15/18 1417 Platelet Count 261 K/uL 06/15/18 1417 Blood Gas Puncture Site Right radial 06/15/18 1534 Blood Gas Patient Temperature 98.0 DEGREES 06/15/18 1534 Arterial Blood pH 7.33 L 06/15/18 1534 Arterial Blood Partial Pressure CO2 < 25 mmHg L 06/15/18 1534 Arterial Blood Partial Pressure O2 68 mmHg 06/15/18 1534 Arterial Blood HCO3 12 mmol/L *L 06/15/18 1534 Arterial Blood Oxygen Saturation 93 % 06/15/18 1534 Arterial Blood Base Excess -14.0 mmol/L 06/15/18 1534 Angelito Test Acceptable 06/15/18 1534 Oxygen Liters/Minute 21% 06/15/18 1534 Lipase 45 U/L 06/15/18 1417 Albumin 4.5 g/dl 06/15/18 1417 Total Protein 7.2 g/dl 06/15/18 1417 Alkaline Phosphatase 126 U/L 06/15/18 1417 Alanine Aminotransferase (ALT/SGPT) 38 U/L 06/15/18 1417 Aspartate Amino Transf (AST/SGOT) 31 U/L 06/15/18 1417 Total Bilirubin 1.0 mg/dl 06/15/18 1417 Calcium Level 9.3 mg/dl 06/15/18 1417 Random Glucose 633 mg/dl *H 06/15/18 1417 Glomerular Filtration Rate Calc > 60.0 06/15/18 1417 Creatinine 1.00 mg/dl 06/15/18 1417 Blood Urea Nitrogen 28 mg/dl H 06/15/18 1417 Carbon Dioxide Level 16 mmol/L L 06/15/18 1417 Chloride Level 98 mmol/L 06/15/18 1417 Potassium Level 4.8 mmol/L 06/15/18 1417 Sodium Level 131 mmol/L L 06/15/18 1417 Urine Color Straw 06/15/18 1438 Urine Clarity Clear 06/15/18 1438 Urine pH 5.0 pH 06/15/18 1438 Urine Specific [place] 1.024 06/15/18 1438 Urine Protein Negative mg/dL 06/15/18 1438 Urine Glucose (UA) 500 mg/dL 06/15/18 1438 Urine Ketones 80 mg/dL H 06/15/18 1438 Urine Blood Negative 06/15/18 1438 Urine Nitrite Negative 06/15/18 1438 Urine Bilirubin Negative 06/15/18 1438 Urine Urobilinogen Negative mg/dL 06/15/18 1438 Urine Leukocyte Esterase Negative 06/15/18 1438 Urine RBC <1 /HPF 06/15/18 1438 Urine WBC <1 /HPF 06/15/18 1438 Urine Squamous Epithelial Cells None /LPF 06/15/18 1438 Urine Bacteria Negative /HPF 06/15/18 1438 Urine Mucus None /HPF 06/15/18 1438 Urine Cannabinoids Screen Negative 06/15/18 1438 Urine Cocaine Screen Negative 06/15/18 1438 Urine Benzodiazepines Screen Negative 06/15/18 1438 Urine Amphetamines Screen Positive 06/15/18 1438 Urine Phencyclidine Screen Negative 06/15/18 1438 Ur Tricyclic Antidepressants Screen Negative 06/15/18 1438 Urine Barbiturates Screen Negative 06/15/18 1438 Urine Opiates Screen Negative 06/15/18 1438 Serum Alcohol < 10 mg/dl 06/15/18 1417 Acetone, Qualitative Moderate 06/15/18 0000 Imaging PATIENT NAME: Charles Gonzalez : 1985 MR: [id number] V: [id number] EXAM DATE: [id number] ORDERING PHYSICIAN: KAYDEN MUNIZ TECHNOLOGIST: Location: [facility] [place] Patient: Charles Gonzalez : 1985 Visit/Account:[id number] Date of Sevice: 06/15/2018 CT ABDOMEN PELVIS W/ CON COMPARISON: None. HISTORY: abd pain, meth use, DKA. TECHNIQUE: Axial CT abdomen and pelvis with intravenous contrast. Coronal and sagittal reformats. One of the following dose optimization techniques was utilized in the performance of this exam: automated exposure control; adjustment of the mA and/or kV according to patient size; or use of iterative reconstruction technique. Specific details can be referenced in the facility's radiology CT exam operational policy. CONTRAST: 85 mL of IV [id number]. FINDINGS: LUNG BASES: Severe diffuse wall thickening of the distal esophagus, with prominent, subcentimeter paraesophageal lymph nodes which are more numerous than typical. The subdural wall thickening is continuous over a length of at least 10 cm, incompletely imaged. This is most consistent with esophagitis given the patient's age. Distal esophagus neoplasm would be unlikely in this age group. LIVER: Negative. BILIARY: Negative. SPLEEN: Negative. PANCREAS: Negative. ADRENALS: Negative. KIDNEYS: Negative. GI/MESENTERY: Distal esophagus wall thickening as above. This extends to the GE junction but does not appear to involve the gastric fundus. The rest of the stomach is under distended but unremarkable. There is no bowel wall thickening in the abdomen or pelvis and there is no evidence for obstruction. No localized inflammatory fat stranding, free air, or ascites. Appendix is not identified. Small fat-containing periumbilical hernia just superior to the umbilicus with mild internal fat stranding which is nonspecific. This does not contain bowel. VASCULAR: Negative. LYMPH NODES: Negative. BLADDER: Negative. PELVIC ORGANS: Negative. BONES: Negative. OTHER: Negative. IMPRESSION: 1. Marked, long segment wall thickening of the distal esophagus, most consistent with acute esophagitis given the provided history of pain and the patient's age.Numerous small paraesophageal lymph nodes are probably reactive. 2. No other acute bowel pathology in the abdomen or pelvis. 3. Small fat-containing periumbilical hernia just superior to the umbilicus with mild internal fat stranding, nonspecific. Report Dictated By: Prashanth Feliz at 06/15/2018 4:55 PM Report E-Signed By: Prashanth Feliz at 06/15/2018 5:00 PM WSN:[id number] PATIENT NAME: Charles Gonzalez : 1985 MR: [id number] V: [id number] EXAM DATE: ORDERING PHYSICIAN: KAYDEN MUNIZ TECHNOLOGIST: Location: [facility] [place] Patient: Charles Gonzalez : 1985 Visit/Account:[id number] Date of Sevice: 06/15/2018 CHEST PA LAT INDICATION: Epigastric pain, DKA, tachy, meth use COMPARISON: None available FINDINGS: Heart size within normal limits. There is no focal infiltrate or lobar consolidation. There is no pneumothorax or pleural effusion. IMPRESSION: 1. No acute cardiopulmonary process. Report Dictated By: Dave Ortega at 06/15/2018 4:42 PM Report E-Signed By: Dave Ortega at 06/15/2018 4:43 PM WSN:[id number] EKG PATIENT NAME: CHARLES GONZALEZ : [id number] MR: [id number] V: [id number] EXAM DATE: ORDERING PHYSICIAN: KAYDEN MUNIZ TECHNOLOGIST: Test Reason : Blood Pressure : / mmHG Vent. Rate : 121 BPM Atrial Rate : 121 BPM P-R Int : 146 ms QRS Dur : 074 ms QT Int : 324 ms P-R-T Axes : 070 071 050 degrees QTc Int : 460 ms Sinus tachycardia Otherwise normal ECG No previous ECGs available Confirmed by NI WALKER ([id number]) on 06/15/2018 8:03:47 PM Referred By: Confirmed By:NI WALKER Condition: Improved (Patient signed out against medical advice.) Discharge Instructions Home Meds Active Scripts [Gi Cocktail 60 Ml Btl] 60 ML SUSP No Conflict Check, 10 ML PO TID PRN for DYSPEPSIA, #8 OZ 0 Refills 10 ML (two teaspoons) PO three times daily as needed for esophagitis pain. Prov:REY JAQUEZ MD 06/16/18 Omeprazole (OMEPRAZOLE) 20 Mg Capsule.dr, 1 CAP PO BID, #45 CAP 1 Refill Prov:REY JAQUEZ MD 06/16/18 Sucralfate (CARAFATE) 1 Gm Tablet, 1 GM PO QID, #60 TAB 1 Refill Prov:REY JAQUEZ MD 06/16/18 Insulin Detemir (LEVEMIR) 100 Unit/Ml Injs, 30 UNIT SUBQ BID, #3 PEN 1 Refill Prov:REY JAQUEZ MD 06/16/18 Insulin Lispro 100 Un/Ml Vial (HUMALOG 100 U/ML VIAL) 100 Unit/1 Ml Vial, 2-10 UNIT SQ TIDCF, #1 VIAL 1 Refill 2 units if Blood Sugar 200-249 4 units if Blood sugar 250-299 6 units if Blood sugar 300-349 8 units if blood sugar 350-399 10 units if blood sugar 400-450 Prov:REY JAQUEZ MD 06/16/18 Nicotine (NICOTINE PATCH) 1 Each Patch.td24, 1 EACH TD DAILY, #30 PATCH.24H 3 Refills Prov:AZUL LONDONO MD 06/05/18 Discontinued Reported Medications Insulin Detemir 100 UN/ML PEN (Levemir Flextouch) 100 Unit/1 Ml Insuln.pen 06/01/18 Discontinued Scripts Insulin Lispro 100 Un/Ml Vial (HUMALOG 100 U/ML VIAL) 100 Unit/1 Ml Vial, 100 UNIT SQ DIRECTED, #2 VIAL 2 Refills Prov:BRYAZUL MD 06/05/18 Diet: Diabetic Activity: As Tolerated, No Exertion Special Instructions: Follow up [facility] in next 5-7 days or sooner if any problems. Check glucoses QID (AC and HS) and use Sliding Scale Insulin as noted. Copies to: [facility] ; Venous Thromboembolism Antithrombotics Is Pt On Any Antithrombotics?: Yes Problem Qualifiers (1) DKA (diabetic ketoacidoses): Diabetes mellitus type: type 1 Diabetes mellitus complication detail: without coma Qualified Codes: E10.10 - Type 1 diabetes mellitus with ketoacidosis without coma (2) Type 1 diabetes: Diabetes mellitus complication status: with hyperglycemia Qualified Codes: E10.65 - Type 1 diabetes mellitus with hyperglycemia REY JAQUEZ MD Jun 16, 2018 14:39
--- NOTE | 2018-06-16 15:01 | NUR ---
Patient is alert and oriented to person, place, and time, but not to situation. Minimizes the risk for drug relapse without current outpatient care. Desires to leave the hospital against medical advice. Encouraged him to consider admission to [facility] to help him get to rehab and begin recovery care. He said he would consider coming back to the hospital, but wants to go see his first. Encouraged him to care for himself and come directly to [facility] crisis care at [facility] and he said he ketty not, for now. Said, "I'll come back if I have trouble."
--- NOTE | 2018-06-16 15:18 | NUR ---
pt approached nurses desk at 1400 requesting to have his IV's removed so he could "go home." This RN presented her concerns with pt leaving and then discussed pt's diagnosis and medical prognosis if pt were to leave. this RN also encouraged pt discuss reasons why he wanted to leave and pt responded that he wanted to get home to his and make arrangements for getting to [place] for rehab. pt had made numerous attempts since admission to medical surgical to contact his , who is supposed to go to rehab with him Jhony. his inability to reach her was creating obvious distress. Dr. Villanueva was then notified. Pt spoke with [facility] counselor and refused to stay and be admitted to [facility]. pt signed AMA paper and a Taxi was arranged to give him a ride home. pt stated to this RN that he would come back to hospital if he couldn't find arrangements to [place] or needed medical attention.
== END 2018-06-16 15:18 | disposition left against medical advice (07) | DRG 639 ==
LOC: ER 14:44 → ICU 17:03 → MED 06-16 11:30
PROVIDERS: ADMIT Internal Medicine; ATTEND Internal Medicine
DX: E10.10 Type 1 diabetes mellitus with ketoacidosis without coma (principal); F43.12 Post-traumatic stress disorder, chronic; E10.319 Type 1 diabetes mellitus with unspecified diabetic retinopathy without macular edema; E10.40 Type 1 diabetes mellitus with diabetic neuropathy, unspecified; F17.210 Nicotine dependence, cigarettes, uncomplicated; F31.9 Bipolar disorder, unspecified; K20.9 Esophagitis, unspecified; F15.10 Other stimulant abuse, uncomplicated; I25.2 Old myocardial infarction; Z91.5 Personal history of self-harm; Z79.4 Long term (current) use of insulin
CPT/HCPCS: 36415; 36416; 36600; 71046; 74177; 80305; 80320; 81001; 82009; 82040; 82247; 82310; 82374; 82435; 82565; 82803; 82947; 82948; 83690; 83930; 84075; 84132; 84155; 84295; 84450; 84460; 84520; 85025; 96361; 96365; 96375; 99285; C9113; J1815; J1885; J2405; J2550; J3480; J7030; J7050; Q9967

== ENCOUNTER → 2018-06-15 | Outpatient (CLI) | payer SELFPAY ==
[~2018-06-15] MED LIST changes: +LEVI SUBQ; +NICO1PAT86 TD; +OMEP-125 PO; +SUCR1TAB85 PO; +[UNRECOGNIZED DRUG - OTHER] PO
== END ==
LOC: AMB 14:08
PROVIDERS: ATTEND Nurse Practitioner
DX: E10.10 Type 1 diabetes mellitus with ketoacidosis without coma (principal); R11.10 Vomiting, unspecified; R10.11 Right upper quadrant pain
CPT/HCPCS: A0425; A0427

== ENCOUNTER 2018-06-17 14:01 | Inpatient (IN) | payer SELFPAY ==
[2018-06-17] VITALS (19 sets, daily range): BP systolic 79–144; BP diastolic 40–99
[2018-06-17] MEDS ORDERED: NS(*) 0.9% 1000 ML BAG 1,000 ML IV ONE (14:10)
[2018-06-17 14:21] LABS: PLATELET COUNT, AUTOMATED 227 K/uL (150-450)
--- NOTE | 2018-06-17 14:31 | EKG ---
FACILITY: [facility] PATIENT NAME: MARTÍNEZ GONZALEZ : [id number] MR: [id number] V: [id number] EXAM DATE: ORDERING PHYSICIAN: IVAN BRYANT TECHNOLOGIST: Test Reason : elevated glucose Blood Pressure : / mmHG Vent. Rate : 116 BPM Atrial Rate : 116 BPM P-R Int : 142 ms QRS Dur : 072 ms QT Int : 314 ms P-R-T Axes : 076 075 063 degrees QTc Int : 436 ms Sinus tachycardia Otherwise normal ECG When compared with ECG of 15-JUN-2018 15:05, No significant change was found Confirmed by Mikhail Sandoval ([id number]) on 06/17/2018 10:48:24 PM Referred By: Confirmed By:Mikhail Dorantes
[2018-06-17] MEDS ORDERED: ONDANSETRON 4 MG/2 ML VIAL IVP ONE ×2 (14:50→15:25)
[2018-06-17] MEDS ORDERED: EMS NS 0.9%(*) 1000 ML BAG 1,000 ML IV ONE (15:05)
[2018-06-17] MEDS: INS HUM REG* 100 U/ML(ER ONLY) 100 UNIT in NS(*) 0.9% 100 ML BAG 99 ML IV SCH ×2 (15:22→15:25)
[2018-06-17] MEDS ORDERED: INSULIN HUM REG 100 UN/ML 3 ML 100 UNIT in NS(*) 0.9% 100 ML BAG 99 ML IV SCH (16:21)
[2018-06-17] MEDS ORDERED: NS(*) 0.9% 1000 ML BAG 1,000 ML IV PRN (16:25)
[2018-06-17] MEDS ORDERED: ACETAMINOPHEN(*)1000 MG/100 ML 100 ML IVPB PRN (16:35)
--- NOTE | 2018-06-17 16:50 | ER Report ---
History and Physical Time Seen By MD: 14:00 Hx. of Stated Complaint: PATIENT SIGNED OUT AMA YESTERDAY AFTER DIAGNOSIS OF DKA. COMES IN WITH COMPLAINTS OF NAUSEA AND VOMITTING HPI/ROS 32 y/o male with a h/o type 1 DM presents to the Ed with nausea/vomiting and high blood sugars. He was seen and admitted on Monday for DKA, and left AMA yesterday. Has a history of drug abuse. He and his are currently planning to go to an inpatient rehab facility in [place] for drug rehab. Admits to using methamphetamines last on Monday. Smoked THC yesterday after leaving the hospital AMA. Remainder of the 14 system rev: Yes Allergies: Coded Allergies: No Known Drug Allergies (Unverified , 06/05/18) Home Meds Active Scripts [Gi Cocktail 60 Ml Btl] 60 ML SUSP No Conflict Check, 10 ML PO TID PRN for DYSPEPSIA, #8 OZ 0 Refills 10 ML (two teaspoons) PO three times daily as needed for esophagitis pain. Prov:REY JAQUEZ MD 06/16/18 Omeprazole (OMEPRAZOLE) 20 Mg Capsule.dr, 1 CAP PO BID, #45 CAP 1 Refill Prov:REY JAQUEZ MD 06/16/18 Sucralfate (CARAFATE) 1 Gm Tablet, 1 GM PO QID, #60 TAB 1 Refill Prov:REY JAQUEZ MD 06/16/18 Insulin Detemir (LEVEMIR) 100 Unit/Ml Injs, 30 UNIT SUBQ BID, #3 PEN 1 Refill Prov:REY JAQUEZ MD 06/16/18 Insulin Lispro 100 Un/Ml Vial (HUMALOG 100 U/ML VIAL) 100 Unit/1 Ml Vial, 2-10 UNIT SQ TIDCF, #1 VIAL 1 Refill 2 units if Blood Sugar 200-249 4 units if Blood sugar 250-299 6 units if Blood sugar 300-349 8 units if blood sugar 350-399 10 units if blood sugar 400-450 Prov:REY JAQUEZ MD 06/16/18 Nicotine (NICOTINE PATCH) 1 Each Patch.td24, 1 EACH TD DAILY, #30 PATCH.24H 3 Refills Prov:AZUL LONDONO MD 06/05/18 Discontinued Reported Medications Insulin Detemir 100 UN/ML PEN (Levemir Flextouch) 100 Unit/1 Ml Insuln.pen 06/01/18 Discontinued Scripts Insulin Lispro 100 Un/Ml Vial (HUMALOG 100 U/ML VIAL) 100 Unit/1 Ml Vial, 100 UNIT SQ DIRECTED, #2 VIAL 2 Refills Prov:AZUL LONDONO MD 06/05/18 Reviewed Nurses Notes: Yes Old Medical Records Reviewed: Yes Hx Smoking: Yes (1 PPD) Smoking Status: Current: Every Day Smoker Hx Substance Use Disorder: Yes (meth, marijuana current) Hx Alcohol Use: Yes Constitutional Vital Sign - Last 24 Hours 06/17/18 06/17/18 06/17/18 06/17/18 14:04 14:08 14:13 14:30 Pulse 118 Resp 15 B/P (MAP) 127/82 (97) 132/119 (123) Pulse Ox 97 O2 Delivery Room Air 06/17/18 06/17/18 14:33 14:53 Pulse 118 123 Resp 14 7 Pulse Ox 97 95 Physical Exam General Appearance: The patient is alert, has no immediate need for airway protection and no current signs of toxicity. Eyes: Pupils equal and round no injection. Respiratory: Chest is non tender, lungs are clear to auscultation Cardiac: tachycardic with regular rhythm Gastrointestinal: Abdomen is soft and non tender, no masses, bowel sounds normal. Skin: No rashes or lesions. Medical Decision Making Data Points Result Diagram: 06/17/18 1408 06/17/18 1408 Laboratory Hematology Test 06/17/18 14:08 06/17/18 14:14 Red Blood Count 5.85 M/uL (4.00-5.60) Mean Corpuscular Volume 92.9 fL (80.0-96.0) Mean Corpuscular Hemoglobin 31.1 pg (26.0-33.0) Mean Corpuscular Hemoglobin Concent 33.4 g/dL (32.0-36.0) Red Cell Distribution Width 13.5 % (11.5-14.5) Mean Platelet Volume 8.8 fL (7.2-11.1) Neutrophils (%) (Auto) 78.4 % (39.4-72.5) Lymphocytes (%) (Auto) 15.1 % (17.6-49.6) Monocytes (%) (Auto) 5.9 % (4.1-12.4) Eosinophils (%) (Auto) 0.3 % (0.4-6.7) Basophils (%) (Auto) 0.3 % (0.3-1.4) Nucleated RBC Relative Count (auto) 0.0 /100WBC Neutrophils # (Auto) 5.6 K/uL (2.0-7.4) Lymphocytes # (Auto) 1.1 K/uL (1.3-3.6) Monocytes # (Auto) 0.4 K/uL (0.3-1.0) Eosinophils # (Auto) 0.0 K/uL (0.0-0.5) Basophils # (Auto) 0.0 K/uL (0.0-0.1) Nucleated RBC Absolute Count (auto) 0.00 K/uL Sodium Level 129 mmol/L (137-145) Potassium Level 5.0 mmol/L (3.5-5.0) Chloride Level 93 mmol/L (98-107) Carbon Dioxide Level 15 mmol/L (22-30) Blood Urea Nitrogen 24 mg/dl (9-21) Creatinine 1.00 mg/dl (0.66-1.25) Glomerular Filtration Rate Calc > 60.0 Random Glucose 627 mg/dl (75-110) Osmolality 312 mOSM/K (275-295) Calcium Level 9.5 mg/dl (8.4-10.2) Magnesium Level 2.1 mg/dl (1.7-2.2) Total Bilirubin 1.6 mg/dl (0.2-1.3) Aspartate Amino Transf (AST/SGOT) 25 U/L (0-35) Alanine Aminotransferase (ALT/SGPT) 32 U/L (0-56) Alkaline Phosphatase 229 U/L (0-126) Total Protein 7.9 g/dl (6.3-8.2) Albumin 4.7 g/dl (3.5-5.0) Salicylates Level < 10 mg/L Salicylate Last Dose Date Unk Acetaminophen Level < 10 ug/ml Serum Alcohol < 10 mg/dl Acetone, Qualitative Small Urine Color Colorless Urine Clarity Clear Urine pH 5.0 pH (4.8-9.5) Urine Specific [place] 1.016 Urine Protein Negative mg/dL (NEGATIVE) Urine Glucose (UA) 500 mg/dL (NEGATIVE) Urine Ketones 80 mg/dL (NEGATIVE) Urine Blood Negative (NEGATIVE) Urine Nitrite Negative (NEGATIVE) Urine Bilirubin Negative (NEGATIVE) Urine Urobilinogen Negative mg/dL (0.2-1.9) Urine Leukocyte Esterase Negative (NEGATIVE) Urine RBC <1 /HPF (0-2/HPF) Urine WBC None /HPF (0-5/HPF) Urine Squamous Epithelial Cells None /LPF (</=FEW) Urine Bacteria Negative /HPF (NONE-FEW) Urine Mucus None /HPF (NONE-FEW) Urine Opiates Screen Negative Urine Barbiturates Screen Positive Ur Tricyclic Antidepressants Screen Negative Urine Phencyclidine Screen Negative Urine Amphetamines Screen Negative Urine Benzodiazepines Screen Negative Urine Cocaine Screen Negative Urine Cannabinoids Screen Negative Chemistry Test 06/17/18 14:08 06/17/18 14:14 White Blood Count 7.1 k/uL (4.5-11.0) Red Blood Count 5.85 M/uL (4.00-5.60) Hemoglobin 18.2 g/dL (14.0-18.0) Hematocrit 54.4 % (42.0-52.0) Mean Corpuscular Volume 92.9 fL (80.0-96.0) Mean Corpuscular Hemoglobin 31.1 pg (26.0-33.0) Mean Corpuscular Hemoglobin Concent 33.4 g/dL (32.0-36.0) Red Cell Distribution Width 13.5 % (11.5-14.5) Platelet Count 227 K/uL (150-450) Mean Platelet Volume 8.8 fL (7.2-11.1) Neutrophils (%) (Auto) 78.4 % (39.4-72.5) Lymphocytes (%) (Auto) 15.1 % (17.6-49.6) Monocytes (%) (Auto) 5.9 % (4.1-12.4) Eosinophils (%) (Auto) 0.3 % (0.4-6.7) Basophils (%) (Auto) 0.3 % (0.3-1.4) Nucleated RBC Relative Count (auto) 0.0 /100WBC Neutrophils # (Auto) 5.6 K/uL (2.0-7.4) Lymphocytes # (Auto) 1.1 K/uL (1.3-3.6) Monocytes # (Auto) 0.4 K/uL (0.3-1.0) Eosinophils # (Auto) 0.0 K/uL (0.0-0.5) Basophils # (Auto) 0.0 K/uL (0.0-0.1) Nucleated RBC Absolute Count (auto) 0.00 K/uL Glomerular Filtration Rate Calc > 60.0 Osmolality 312 mOSM/K (275-295) Calcium Level 9.5 mg/dl (8.4-10.2) Magnesium Level 2.1 mg/dl (1.7-2.2) Total Bilirubin 1.6 mg/dl (0.2-1.3) Aspartate Amino Transf (AST/SGOT) 25 U/L (0-35) Alanine Aminotransferase (ALT/SGPT) 32 U/L (0-56) Alkaline Phosphatase 229 U/L (0-126) Total Protein 7.9 g/dl (6.3-8.2) Albumin 4.7 g/dl (3.5-5.0) Salicylates Level < 10 mg/L Salicylate Last Dose Date Unk Acetaminophen Level < 10 ug/ml Serum Alcohol < 10 mg/dl Acetone, Qualitative Small Urine Color Colorless Urine Clarity Clear Urine pH 5.0 pH (4.8-9.5) Urine Specific [place] 1.016 Urine Protein Negative mg/dL (NEGATIVE) Urine Glucose (UA) 500 mg/dL (NEGATIVE) Urine Ketones 80 mg/dL (NEGATIVE) Urine Blood Negative (NEGATIVE) Urine Nitrite Negative (NEGATIVE) Urine Bilirubin Negative (NEGATIVE) Urine Urobilinogen Negative mg/dL (0.2-1.9) Urine Leukocyte Esterase Negative (NEGATIVE) Urine RBC <1 /HPF (0-2/HPF) Urine WBC None /HPF (0-5/HPF) Urine Squamous Epithelial Cells None /LPF (</=FEW) Urine Bacteria Negative /HPF (NONE-FEW) Urine Mucus None /HPF (NONE-FEW) Urine Opiates Screen Negative Urine Barbiturates Screen Positive Ur Tricyclic Antidepressants Screen Negative Urine Phencyclidine Screen Negative Urine Amphetamines Screen Negative Urine Benzodiazepines Screen Negative Urine Cocaine Screen Negative Urine Cannabinoids Screen Negative Toxicology Test 06/17/18 14:08 06/17/18 14:14 Salicylates Level < 10 mg/L Salicylate Last Dose Date Unk Acetaminophen Level < 10 ug/ml Serum Alcohol < 10 mg/dl Acetone, Qualitative Small Urine Opiates Screen Negative Urine Barbiturates Screen Positive Ur Tricyclic Antidepressants Screen Negative Urine Phencyclidine Screen Negative Urine Amphetamines Screen Negative Urine Benzodiazepines Screen Negative Urine Cocaine Screen Negative Urine Cannabinoids Screen Negative Urinalysis Test 06/17/18 14:14 Urine Color Colorless Urine Clarity Clear Urine pH 5.0 pH (4.8-9.5) Urine Specific [place] 1.016 Urine Protein Negative mg/dL (NEGATIVE) Urine Glucose (UA) 500 mg/dL (NEGATIVE) Urine Ketones 80 mg/dL (NEGATIVE) Urine Blood Negative (NEGATIVE) Urine Nitrite Negative (NEGATIVE) Urine Bilirubin Negative (NEGATIVE) Urine Urobilinogen Negative mg/dL (0.2-1.9) Urine Leukocyte Esterase Negative (NEGATIVE) Urine RBC <1 /HPF (0-2/HPF) Urine WBC None /HPF (0-5/HPF) Urine Squamous Epithelial Cells None /LPF (</=FEW) Urine Bacteria Negative /HPF (NONE-FEW) Urine Mucus None /HPF (NONE-FEW) ED Course/Re-evaluation ED Course Uncomplicated DKA in the setting of drug use and abuse. Patient given IV fluids, antinausea medication, and placed on an insulin drip. Potassium 5.0. No EKG changes. No evidence of infection. DKA secondary to noncompliance due to drug use. Admitted to the ICU for further stabilization. Decision to Disposition Date: Jun 17, 2018 Decision to Disposition Time: 18:03 Depart Departure Latest Vital Signs Vital Signs Date Time Temp Pulse Resp B/P (MAP) Pulse Ox O2 Delivery O2 Flow Rate FiO2 06/17/18 14:53 123 7 95 06/17/18 14:30 132/119 (123) 06/17/18 14:04 Room Air Impression: Primary Impression: DKA (diabetic ketoacidoses) Condition: Improved Disposition: Admitted from ER Departure Forms: Medications Reconciliation, Patient Portal Information, ER Transition Record Problem Qualifiers Primary Impression: DKA (diabetic ketoacidoses) Diabetes mellitus type: type 1 Diabetes mellitus complication detail: without coma Qualified Codes: E10.10 - Type 1 diabetes mellitus with keto acidosis without coma IVAN BRYANT MD Jun 17, 2018 16:50
[2018-06-17] MEDS: PROMETHAZINE 25 MG/ML 1 ML AMP IVP PRN ×2 (17:31→23:39)
[2018-06-17] MEDS ORDERED: NS(*) 0.9% 250 ML BAG 250 ML ONE (17:51)
[2018-06-17] MEDS ORDERED: PANTOPRAZOLE SOD 40 MG IV VIAL IVP SCH (17:55)
[2018-06-17] MEDS ORDERED: GI COCKTAIL 60 ML BTL PO PRN (17:55)
[2018-06-17] MEDS ORDERED: D5W(*) 1000 ML BAG 1,000 ML IV PRN ×2 (18:30→19:25)
[2018-06-17] MEDS ORDERED: INSULIN HUM LISPRO 100 UN/ML 3 ML VIAL SUBQ PRN (19:25)
--- NOTE | 2018-06-17 19:50 | History & Physical ---
History of Present Illness Chief Complaint nausea History of Present Illness 32M who was hospitalized until 06.16 when he left AMA. Began having increased nausea and feeling dehydrated so returned to ER. Reports he left to help pack, they have plans to enter inpatient drug rehab. Denies vomiting, fever. Reports abdominal pain. History Problems: (1) Substance abuse Status: Chronic (2) Type 1 diabetes Status: Chronic (3) Esophagitis Status: Chronic Home Meds Active Scripts [Gi Cocktail 60 Ml Btl] 60 ML SUSP No Conflict Check, 10 ML PO TID PRN for DYSPEPSIA, #8 OZ 0 Refills 10 ML (two teaspoons) PO three times daily as needed for esophagitis pain. Prov:REY JAQUEZ MD 06/16/18 Omeprazole (OMEPRAZOLE) 20 Mg Capsule.dr, 1 CAP PO BID, #45 CAP 1 Refill Prov:REY JAQUEZ MD 06/16/18 Sucralfate (CARAFATE) 1 Gm Tablet, 1 GM PO QID, #60 TAB 1 Refill Prov:REY JAQUEZ MD 06/16/18 Insulin Detemir (LEVEMIR) 100 Unit/Ml Injs, 30 UNIT SUBQ BID, #3 PEN 1 Refill Prov:REY JAQUEZ MD 06/16/18 Insulin Lispro 100 Un/Ml Vial (HUMALOG 100 U/ML VIAL) 100 Unit/1 Ml Vial, 2-10 UNIT SQ TIDCF, #1 VIAL 1 Refill 2 units if Blood Sugar 200-249 4 units if Blood sugar 250-299 6 units if Blood sugar 300-349 8 units if blood sugar 350-399 10 units if blood sugar 400-450 Prov:REY JAQUEZ MD 06/16/18 Nicotine (NICOTINE PATCH) 1 Each Patch.td24, 1 EACH TD DAILY, #30 PATCH.24H 3 Refills Prov:AZUL LONDONO MD 06/05/18 Discontinued Reported Medications Insulin Detemir 100 UN/ML PEN (Levemir Flextouch) 100 Unit/1 Ml Insuln.pen 06/01/18 Discontinued Scripts Insulin Lispro 100 Un/Ml Vial (HUMALOG 100 U/ML VIAL) 100 Unit/1 Ml Vial, 100 UNIT SQ DIRECTED, #2 VIAL 2 Refills Prov:AZUL LONDONO MD 06/05/18 Allergies: Coded Allergies: No Known Drug Allergies (Unverified , 06/05/18) Patient History: FH: cancer (Mother with head and neck cancer.) MOTHER FH: leukemia MOTHER FH: type 1 diabetes BROTHER OR SISTER Hx Smoking: Yes (1 PPD) Smoking Status: Current: Every Day Smoker Hx Alcohol Use: Yes Hx Substance Use Disorder: Yes (meth, marijuana current) Social Drug Use: Currently Social Drugs: Marijuana, Amphetamines Review of Systems All Systems Reviewed/Normal: Yes, Except as Noted Constitutional: No Fever Respiratory: No Shortness of Breath Gastrointestinal: Nausea; No Vomiting Exam Vital Signs Vital Signs Date Time Temp Pulse Resp B/P (MAP) Pulse Ox O2 Delivery O2 Flow Rate FiO2 06/17/18 16:04 98.2 117 24 133/88 (103) 95 Room Air General Appearance: Alert, Awake, No Acute Distress, Afebrile Neuro: No Gross deficits ENT: Normal Cardiovascular: Normal Rhythm & Peripheral Pulses Respiratory: No Respiratory Distress GI: Abd Soft and Non-Tender (+ abdominal pain) Musculoskeletal: No Weakness/Pain Extremities: Soft and Non Tender, Warm, Pulses, Perfused; No Edema Medical Decision Making Data Points Result Diagram: 06/17/18 1408 06/17/18 1846 Assessment and Plan Problems: (1) DKA (diabetic ketoacidoses) Status: Acute Assessment & Plan: Gap closed rapidly and sugars decreased with IV insulin. Given 20U Levemir and allowed to eat. Monitor in ICU overnight and could possibly discharge tomorrow. (2) Type 1 diabetes Status: Chronic Assessment & Plan: Takes 30U BID Levemir and uses SSI. Will resume 20U, diabetic diet after gap closed, SSI . (3) Substance abuse Status: Chronic Assessment & Plan: Plans to enter rehab per reports. Needs 3 mo supply of diabetic supplies and insulin. (4) Esophagitis Status: Chronic Assessment & Plan: On chronic Protonix and using GI cocktail. Will continue while inpatient. Venous Thromboembolism Antithrombotics Is Pt On Any Antithrombotics?: Yes Exam Sepsis Risk: No Definite Risk Problem Qualifiers (1) DKA (diabetic ketoacidoses): Diabetes mellitus type: type 1 Diabetes mellitus complication detail: without coma Qualified Codes: E10.10 - Type 1 diabetes mellitus with ketoacidosis without coma KEVIN NICHOLSON DO Jun 17, 2018 19:50
[2018-06-17] MEDS ORDERED: INSULIN DETEMIR 100 UN/ML VIAL SUBQ SCH (20:00)
--- NOTE | 2018-06-17 20:55 | NUR ---
aware of blood sugar. Holding SSI dose at this time. Addendum: 06/17/18 at 2055 by RIKKI ALDANA RN Amended: Links added.
[2018-06-18] VITALS (13 sets, daily range): BP systolic 80–144; BP diastolic 48–94
--- NOTE | 2018-06-18 08:20 | NUR ---
Patient refused to wear monitor. Patient to be discharged later this morning.
[2018-06-18] MEDS ORDERED: PROMETHAZINE HCL 25 MG TAB PO PRN (08:40)
[2018-06-18] MEDS ORDERED: ENOXAPARIN 40 MG/0.4ML SYR SC SCH (09:00)
[2018-06-18] MEDS ORDERED: INSULIN DETEMIR 100 UN/ML VIAL SUBQ SCH (09:00)
[2018-06-18] MEDS ORDERED: PANTOPRAZOLE SOD 40 MG TABEC PO SCH (09:00)
[2018-06-18] MEDS ORDERED: INSULIN DETEMIR 100 U/ML 3 ML PEN SUBQ SCH (09:00)
--- NOTE | 2018-06-18 09:45 | NUR ---
Patient wanting to take a walk so [employer] informed patient could walk around in the ICU area. Patient refused so left AMA and refused to sign paperwork
--- NOTE | 2018-06-18 10:15 | Hospitalist Depart ---
Discharge Summary Reason for Hosp/Final Diag: (1) DKA (diabetic ketoacidoses) Status: Acute Hospital Course & Plan: He did present with hyperglycemia and an elevated anion gap. He was initially on an insulin drip, but converted back to subcutaneous dosing overnight. He left against medical advice before a discharge plan and medications could be arranged. (2) Type 1 diabetes Status: Chronic Hospital Course & Plan: He is on chronic treatment with Levemir and Humalog. (3) Substance abuse Status: Chronic Hospital Course & Plan: Plans to enter rehab per reports. (4) Esophagitis Status: Chronic Hospital Course & Plan: On chronic Protonix and using GI cocktail. Departure Latest Vital Signs Vital Signs Weight (Pounds): 186 Result Diagram: 06/17/18 1408 06/18/18 0525 Condition: Improved Discharge: Home, Self Care Discharge Instructions Home Meds Active Scripts [Gi Cocktail 60 Ml Btl] 60 ML SUSP No Conflict Check, 10 ML PO TID PRN for DYSPEPSIA, #8 OZ 0 Refills 10 ML (two teaspoons) PO three times daily as needed for esophagitis pain. Prov:REY JAQUEZ MD 06/16/18 Omeprazole (OMEPRAZOLE) 20 Mg Capsule.dr, 1 CAP PO BID, #45 CAP 1 Refill Prov:REY JAQUEZ MD 06/16/18 Sucralfate (CARAFATE) 1 Gm Tablet, 1 GM PO QID, #60 TAB 1 Refill Prov:RYE JAQUEZ MD 06/16/18 Insulin Detemir (LEVEMIR) 100 Unit/Ml Injs, 30 UNIT SUBQ BID, #3 PEN 1 Refill Prov:REY JAQUEZ MD 06/16/18 Insulin Lispro 100 Un/Ml Vial (HUMALOG 100 U/ML VIAL) 100 Unit/1 Ml Vial, 2-10 UNIT SQ TIDCF, #1 VIAL 1 Refill 2 units if Blood Sugar 200-249 4 units if Blood sugar 250-299 6 units if Blood sugar 300-349 8 units if blood sugar 350-399 10 units if blood sugar 400-450 Prov:REY JAQUEZ MD 06/16/18 Nicotine (NICOTINE PATCH) 1 Each Patch.td24, 1 EACH TD DAILY, #30 PATCH.24H 3 Refills Prov:AZUL LONDONO MD 06/05/18 Discontinued Reported Medications Insulin Detemir 100 UN/ML PEN (Levemir Flextouch) 100 Unit/1 Ml Insuln.pen 06/01/18 Discontinued Scripts Insulin Lispro 100 Un/Ml Vial (HUMALOG 100 U/ML VIAL) 100 Unit/1 Ml Vial, 100 UNIT SQ DIRECTED, #2 VIAL 2 Refills Prov:AZUL LONDONO MD 06/05/18 Diet: Diabetic Activity: As Tolerated Venous Thromboembolism Antithrombotics Is Pt On Any Antithrombotics?: Yes Problem Qualifiers (1) DKA (diabetic ketoacidoses): Diabetes mellitus type: type 1 Diabetes mellitus complication detail: without coma Qualified Codes: E10.10 - Type 1 diabetes mellitus with ketoacidosis without coma THERON ANGEL DO Jun 18, 2018 10:15
== END 2018-06-18 10:20 | disposition left against medical advice (07) | DRG 639 ==
LOC: ER 14:48 → ICU 14:57
PROVIDERS: ADMIT Internal Medicine; ATTEND Internal Medicine
DX: E10.10 Type 1 diabetes mellitus with ketoacidosis without coma (principal); F15.10 Other stimulant abuse, uncomplicated; F12.10 Cannabis abuse, uncomplicated; F17.210 Nicotine dependence, cigarettes, uncomplicated; K20.9 Esophagitis, unspecified; Z53.29 Procedure and treatment not carried out because of patient's decision for other reasons; Z91.19 Patient's noncompliance with other medical treatment and regimen; Z79.4 Long term (current) use of insulin
CPT/HCPCS: 36415; 36416; 80305; 80320; 80329; 81001; 82009; 82040; 82247; 82310; 82374; 82435; 82565; 82947; 82948; 83735; 83930; 84075; 84132; 84155; 84295; 84443; 84450; 84460; 84520; 85025; 93005; 96361; 96374; 96375; 99285; C9113; J0131; J1650; J1815; J2405; J2550; J7030; J7050; J7070; Q0169

== ENCOUNTER → 2018-06-17 | Outpatient (CLI) | payer SELFPAY ==
[~2018-06-17] MED LIST changes: +OMEP-125 PO; +SUCR1TAB85 PO; +[UNRECOGNIZED DRUG - OTHER] PO
== END ==
LOC: AMB 13:47
PROVIDERS: ATTEND Nurse Practitioner
DX: E10.65 Type 1 diabetes mellitus with hyperglycemia (principal); F15.20 Other stimulant dependence, uncomplicated; R10.819 Abdominal tenderness, unspecified site
CPT/HCPCS: A0425; A0427